=== PATIENT | male | born 1945 | race Caucasian/White ===

== ENCOUNTER 2018-11-18 05:14 | Inpatient (IN) ==
--- NOTE | 2018-11-18 05:45 | PROVIDER DOCUMENTATION ---
HPI-General Adult - General Chief Complaint: Shortness of Breath Stated Complaint: resp distress Time Seen by Provider: 11/18/18 05:42 Source: patient, EMS Allergies/Adverse Reactions: Patient Allergies Allergy/AdvReac Type Severity Reaction Status Date / Time No Known Allergies Allergy Verified 11/15/12 12:17 Home Medications: Home Medication List Medication Instructions Recorded Confirmed Last Taken Type Diazepam [Valium] 5 mg PO HS 11/15/12 03/04/15 03/03/15 21:00 History Gabapentin [Neurontin] 300 mg PO BID 11/15/12 03/04/15 03/03/15 History Propranolol [Inderal] 40 mg PO BID 11/15/12 03/04/15 03/04/15 05:30 History Nicotine Patch [Nicoderm Patch] 21 mg TD DAILY #0 patch.[id number] 11/18/12 03/04/15 Unknown Rx Potassium Chloride E.r. [Klor-Con] 10 meq PO BID #0 tablet 11/18/12 03/04/15 03/04/15 05:30 Rx Primidone [Mysoline] 50 mg PO BID 11/18/12 03/04/15 03/04/15 05:30 Rx - History of Present Illness -Gen Adult Nature of Presenting Problems: Pt presents with sob, pt has had URI, cough, congestion, fever at home, on abx from pcp and recently finished course of abx, pt now with worsening sob, 100.1F at home tonight, pt denies jung, cp, ap, n/v/d. Pt is lying in bed in no acute respiratory distress. Location of Pain/Injury: reports: none Pain Radiation: reports: no radiation Quality of Pain: reports: none Severity: reports: moderate Onset/Duration: reports: 1 week ago Timing: reports: still present Context/Activities at Onset: reports: none Modifying Factors: improves with: nothing Associated Symptoms: reports: cough, shortness of breath Similar Symptoms Previously?: Yes Recently seen or treated by another doctor?: Yes Review of Systems - Adult - REVIEW OF SYSTEMS - ADULT Constitutional: reports: see HPI, fever Eyes: reports: no symptoms reported Ears, Nose, Mouth & Throat: reports: no symptoms reported Cardiovascular: reports: no symptoms reported Respiratory: reports: see HPI Gastrointestinal: reports: no symptoms reported Genitourinary: reports: no symptoms reported Musculoskeletal: reports: no symptoms reported Integumentary: reports: no symptoms reported Neurological: reports: no symptoms reported Psychiatric: reports: no symptoms reported Endocrine: reports: no symptoms reported Hematologic/Lymphatic: reports: no symptoms reported Allergic/Immunologic: reports: no symptoms reported All Other Systems: Reviewed and Negative Past History - Adult - PAST MEDICAL HISTORY-ADULT Review of Records: reports: Old Records Reviewed, Nursing Assessment Review, Medications Reviewed, Social history reviewed & non-contributory. Major Childhood Illnesses: reports: denies history Cardiovascular: reports: denies history Respiratory: reports: denies history Gastrointestinal: reports: denies history Obstetrical/Gynecological: reports: denies history Genitourinary: reports: denies history Musculoskeletal: reports: denies history Neurological: reports: denies history Psychiatric: reports: denies history Endocrine/Immune: reports: denies history Physical Exam-General - PHYSICAL EXAM-ADULT Initial Vital Signs Reviewed: Yes - CONSTITUTIONAL General Appearance: appears well - EYES Eyes: PERRL/EOMI - HEAD, EARS, NOSE, MOUTH & THROAT HENMT: normal ENT inspection - NECK Neck: normal inspection - RESPIRATORY Respiratory: no respiratory distress, no accessory muscle use, crackles - CARDIOVASCULAR Cardiovascular: regular rate, rhythm - GASTROINTESTINAL (ABDOMEN) Abdominal Exam: normal bowel sounds, non tender, soft - LYMPHATIC Lymphatic: no adenopathy - MUSCULOSKELETAL Back Exam: normal inspection Extremity: normal range of motion - SKIN Integumentary: normal color - NEUROLOGIC Neurologic: advanced practice professional II-XII nml as tested - PSYCHIATRIC Psych/Mental Status: normal mood/affect Progress - PLAN OF CARE/RESULTS Progress/Plan/Lab Results: Orders Category Date Time Status Cardiac Monitoring DIRECTED Care 11/18/18 05:24 Active IV Insertion ORDERED Care 11/18/18 05:24 Active Notify MD of + Sepsis Screen NOW Care 11/18/18 05:24 Active Notify Physician As Ordered Care 11/18/18 05:24 Active CHEST-1 VIEW [RAD] Stat Exams 11/18/18 05:24 Ordered BLOOD CULTURE [BLDCUL] Stat Lab 11/18/18 05:24 Uncollected CBC WITH DIFF [HEME] Stat Lab 11/18/18 05:24 Uncollected CK PROFILE [SP CHEM] Stat Lab 11/18/18 05:24 Uncollected COMPREHENSIVE METABOLIC PANEL [CHEM] Stat Lab 11/18/18 05:24 Uncollected LACTATE, PLASMA [CHEM] Stat Lab 11/18/18 05:25 Uncollected PROTIME WITH INR [COAG] Stat Lab 11/18/18 05:24 Uncollected PTT [COAG] Stat Lab 11/18/18 05:24 Uncollected TROPONIN T Stat Lab 11/18/18 05:24 Uncollected URINALYSIS W/POSS RFLX CULT [URINALYSIS] Stat Lab 11/18/18 05:24 Uncollected Oxygen Device Stat Oth 11/18/18 05:24 Active Result Diagrams: 11/18/18 05:30 11/18/18 05:30 - XRAY 1 XRAY Study: Chest Impression: Abnormal (bibasilar infiltrates) - CONSULTS/PCP/HOSPITALIST Notification #1 *Consult/PCP/Hospitalist*: Brenda Time Discussed: 07:40 Consult Disposition: Admit - CHANGE OF SHIFT REPORT (ED Provider) 1 Report Given and Care Transferred to:: Dr Wloff Time of Transfer: 07:00 Items Pending: Labs, XRAY Results Departure - Departure Date of Disposition Decision: 11/18/18 Time of Disposition Decision: 07:45 DIAGNOSIS: Pneumonia, Hypoxemia Disposition: ADMITTED INPATIENT 09 Certified Medical Emergency: Emergent Condition: Stable Referrals and Follow-Ups: Wilbur Lyons MD [Primary Care Provider] - - Critical Care Note This patient required my direct & personal management of CC.: No Attestation - Physician/ UMESH Attestation Patient care was provided by Advanced Practice Provider:: No The physician spent face to face time with patient:: Yes Advanced Practice Provider documentation review:: Supervising physician onsite and consulted in the evaluation and care of this patient. The physician did have a face to face encounter with the patient.
[2018-11-18 06:16] LABS: BASO# 0.01 X1000 (0.0-0.2); EOS# 0.02 X1000 (0.0-0.7); EOS% 0.1 % (0.0-10.0); HEMATOCRIT 42.2 % (42.0-52.0); HEMOGLOBIN 14.5 g/dL (14.0-18.0); IMM GRAN# 0.45 X1000 (0.0-0.04); IMM GRAN% 1.7 % (0.0-0.5); INR 1.05; LYMPH# 2.02 X1000 (1.2-3.4); LYMPH% 7.5 % (20.5-51.1); MCH 30.2 PG (27-31); MCHC 34.4 g/dL (33-37); MCV 87.9 FL (81-99); MONO# 2.13 X1000 (0.11-0.59); MONO% 7.9 % (1.7-9.3); MPV 10.5 FL (7.4-10.4); NEUT# 22.33 X1000 (1.4-6.5); NEUT% 82.8 % (42.2-75.2); PLT 113 X1000 (130-400); PROTIME 14.5 Seconds (11.0-16.0); RDW 14.2 % (11.5-14.5); WBC 26.96 X1000 (4.8-10.8)
[2018-11-18 06:17] LABS: PTT 29.6 Seconds (22.3-41.8)
--- NOTE | 2018-11-18 06:49 | Diag Imaging Result Doc PS360 ---
EXAM: CHEST-1 VIEW HISTORY: fever, cough TECHNIQUE: Chest single view COMPARISON: 11/07/2018 FINDINGS: The lungs are well expanded. The heart is not enlarged. The vessels are not distended. There are increased interstitial markings in the lung bases. No effusion identified. IMPRESSION: Basilar infiltrates on the current exam. Electronically signed by Joo Camarillo 11/18/2018 6:46 AM
[2018-11-18] MEDS ORDERED: LEVAQUIN 750 MG/D5W 750 MG/150 ML IVPB IV ONE (06:51)
[2018-11-18 07:12] LABS: BANDS 2 % (0-1); LYMPHS 4 % (21-51); MONO 2 % (1-9); SEGS 92 % (42-75)
[2018-11-18 07:14] LABS: ALB/GLOB RATIO 0.8; ALBUMIN 3.2 g/dL (3.5-5.0); CALCIUM 8.5 mg/dL (8.8-10.2); CREATININE 1.2 mg/dL (0.7-1.2); POTASSIUM 3.2 mmol/L (3.5-5.1); TOTAL BILIRUBIN 0.94 mg/dL (0.20-1.00)
[2018-11-18] MEDS ORDERED: DUONEB (A & A) INH ONE (07:37)
[2018-11-18] MEDS ORDERED: NS 1,000 ML IV ONE ×2 (07:37→07:46)
[2018-11-18] MEDS ORDERED: ZOFRAN PO PRN (07:46)
[2018-11-18] MEDS ORDERED: TYLENOL PO PRN (07:46)
[2018-11-18 07:52] LABS: URINE SOURCE CLEAN CATCH
[2018-11-18 07:57] LABS: BILIRUBIN URINE NEGATIVE (NEGATIVE); BLOOD URINE NEGATIVE (NEGATIVE); COLOR YELLOW; GLUCOSE URINE NEGATIVE (NEGATIVE); KETONE URINE NEGATIVE (NEGATIVE); LEUKOCYTES URINE NEGATIVE (NEGATIVE); NITRITE URINE NEGATIVE (NEGATIVE); PROTEIN URINE 30 mg/dL (NEGATIVE); SP GRAVITY URINE 1.023; TURBIDITY URINE CLEAR (CLEAR); UROBILINOGEN URINE NORMAL (NORMAL)
[2018-11-18 07:58] LABS: UR EPITHELIAL CELLS <10 /HPF (<10); URINE BACTERIA NEGATIVE /HPF; URINE RBC <10 /HPF (<10); URINE WBC <10 /HPF (<10)
[2018-11-18] MEDS: LEVAQUIN 750 MG/D5W 750 MG/150 ML IVPB IV SCH (08:10)
[2018-11-18] MEDS: DUONEB (A & A) INH SCH ×5 (08:33→23:27)
[2018-11-18] MEDS ORDERED: SODIUM CHLORIDE 0.9% INJ SCH (09:30)
[2018-11-18] MEDS: INDERAL PO SCH ×2 (10:13→21:26)
[2018-11-18 10:14] LABS: MAGNESIUM 1.6 mg/dL (1.5-2.7); PHOSPHORUS 2.7 mg/dL (2.7-4.5)
[2018-11-18] MEDS: NEURONTIN PO SCH ×2 (10:14→21:27)
[2018-11-18] MEDS: ROCEPHIN 1 GM in NS 50 ML IV SCH ×2 (10:15→10:30)
[2018-11-18] MEDS: LOVENOX SUBQ SCH (10:16)
[2018-11-18] MEDS: PROTONIX IV SCH (10:16)
[2018-11-18] MEDS ORDERED: SOLU-MEDROL IV SCH (11:00)
[2018-11-18] MEDS ORDERED: KLOR-CON PO ONE (11:03)
[2018-11-18] MEDS ORDERED: VANCOMYCIN IV PER PHARMACY MISC SCH (11:15)
--- NOTE | 2018-11-18 12:39 | PROGRESS NOTE ---
DATE: 11/18/2018 A 73-year-old, white gentleman admitted with cough, chest congestion, fever, chills, wheezing and some shortness of breath. The patient was tachycardic. Initial blood pressure was low normal. In the ER, found to have bilateral pneumonia. The patient is on IV fluids, IV antibiotics and pulmonary toilet. I evaluated the patient. Overall, plan discussed with the patient. Lab data noted. The patient and his girlfriend was present. cc: MD Robel Rodrigues MD
[2018-11-18] MEDS ORDERED: VANCOMYCIN 2,300 MG in NS 500 ML IV ONE (13:00)
[2018-11-18] MEDS ORDERED: NS 1,000 ML ONE (15:27)
[2018-11-18] MEDS ORDERED: VALIUM PO ONE (15:47)
[2018-11-18 17:45] LABS: BASO# 0.01 X1000 (0.0-0.2); HEMATOCRIT 38.8 % (42.0-52.0); HEMOGLOBIN 13.4 g/dL (14.0-18.0); IMM GRAN# 0.35 X1000 (0.0-0.04); IMM GRAN% 1.6 % (0.0-0.5); LYMPH# 1.14 X1000 (1.2-3.4); LYMPH% 5.2 % (20.5-51.1); MCH 30.6 PG (27-31); MCHC 34.5 g/dL (33-37); MCV 88.6 FL (81-99); MONO# 0.68 X1000 (0.11-0.59); MONO% 3.1 % (1.7-9.3); MPV 10.7 FL (7.4-10.4); NEUT# 19.83 X1000 (1.4-6.5); NEUT% 90.1 % (42.2-75.2); PLT 98 X1000 (130-400); RBC 4.38 XMIL (4.7-6.1); RDW 14.2 % (11.5-14.5); WBC 22.01 X1000 (4.8-10.8)
[2018-11-18 17:48] LABS: ALLEN TEST YES; BE -2.6 mmoll (-3.0-3.0); BLOOD TYPE ARTERIAL; HCO3-(ACT) 22.8 mmoll (20.0-26.0); METHB 1.3 % (0.0-1.5); O2HB 93.9 % (95.0-99.0); PCO2(98.6) 28 mmHg (35-45); PO2(98.6) 65 mmHg (60-100); SAMPLE BLOOD; SAO2 96.7 % (95.0-100.0); THB 13.6 g/dL (11.5-17.4); pH(98.6) 7.46 (7.35-7.45)
[2018-11-18 17:49] LABS: MODALITY CANNULA
[2018-11-18 18:01] LABS: BANDS 5 % (0-1); LYMPHS 3 % (21-51); MONO 2 % (1-9); SEGS 90 % (42-75)
[2018-11-18 18:23] LABS: AGAP 12; ALB/GLOB RATIO 0.8; ALBUMIN 2.7 g/dL (3.5-5.0); ALKALINE PHOSPHATASE 61 U/L (32-122); BUN 22 mg/dL (8-22); CALCIUM 7.8 mg/dL (8.8-10.2); CHLORIDE 104 mmol/L (98-107); COSMO 281; ESTIMATED GFR > 60; GLUCOSE 238 mg/dL (70-104); GOT 35 U/L (10-34); GPT 63 U/L (10-44); POTASSIUM 3.5 mmol/L (3.5-5.1); SODIUM 135 mmol/L (136-145); TCO2 19 mmol/L (25-35); TOTAL BILIRUBIN 0.73 mg/dL (0.20-1.00); TOTAL PROTEIN 6.3 g/dL (6.3-8.3)
[2018-11-18] MEDS: NS + KCL 20 MEQ 1,000 ML IV SCH (18:35)
--- NOTE | 2018-11-18 19:05 | HISTORY AND PHYSICAL ---
A 73-year-old white gentleman came because of shortness of breath. Mr. Diaz, elderly white gentleman was sick for 2 days chest congestion, cough, expectoration, wheezing. Patient did have fever and chills, including shortness of breath, decreased exercise tolerance. The patient was feeling weak. Chest soreness when he came. Evaluated in the ER. Chest x-ray did reveal bilateral pulmonary infiltrate. The patient also had leukocytosis. His initial blood pressure was low normal. Patient was admitted for further care. The patient was also tachycardic and tachypneic. He denied any typical chest pain. He denied palpitation. No hemoptysis. The patient was feeling weak. No nausea or vomiting. Denied any diarrhea, blood or mucus in the stool. No dysuria or hematuria. Denied abdominal pain or distention. No focal weakness. Claimed compliant to medication. No further history available at this time. ALLERGIES: No known drug allergies. MEDICATIONS: Includes Valium, Neurontin, Inderal, potassium, primidone, patient was also taking Norvasc. PAST MEDICAL HISTORY: Hypertension, essential tremor, peripheral neuropathy, fatty liver, COPD, peripheral arterial disease, aortic stenosis. PERSONAL HISTORY: Single, quit smoking recently. Denied alcohol or substance abuse. FAMILY HISTORY: Father at age 65 with TX. He also had Parkinson disease and brain tumor. Mother at age 65 with female cancer detail of which patient does not know. One brother of TX. REVIEW OF SYSTEMS: As per HPI. PHYSICAL EXAMINATION: GENERAL: Elderly white gentleman in mild distress. VITAL SIGNS: Blood pressure when he came was 90/71, pulse 108, respiration 30, temperature 98.8 degrees. SKIN: Normal turgor. No rash or petechiae. HEENT: Head atraumatic, normocephalic. [place] conjunctivae. Anicteric sclerae. Extraocular muscle movement normal. Fundus cannot be penetrated. Good oral hygiene. No tonsillopharyngeal congestion or exudate. Ears and nose benign. NECK: Supple. No JVD, thyromegaly or lymphadenopathy. CHEST: Bibasilar crepitation. Occasional wheezing. CARDIOVASCULAR: S1 and S2 heard, 2-3/6 systolic murmur at aortic area. No gallop or thrill. ABDOMEN: Soft, globular. Bowel sounds present. Nontender. EXTREMITIES: No cyanosis, clubbing. No acute DVT. No acute vascular compromise. CONTAINER REPAIRER: Alert, awake answering questions fairly well. Able to move all 4 limbs. LABORATORY DATA: WBC count 26.96, hemoglobin 14.5, hematocrit 42.2, platelet count 113,000. PT/INR 1.05, PTT 29.6. Electrolytes did reveal mild hypokalemia. BUN 27, creatinine 1.2. AST 56, ALT 81, plasma lactate 2.2, magnesium 1.6. Urinalysis was benign. Chest x-ray did reveal bilateral pulmonary infiltrates. Patient admitted with bilateral pneumonia, chronic obstructive pulmonary disease exacerbation, respiratory distress, hypertension, gastritis, peripheral arterial disease, possibility of systemic inflammatory response syndrome cannot be ruled out. PLAN: Admit the patient. IV antibiotics. Pulmonary toilet. IV steroid. When I was checking patient data again patient was still tachycardic, blood pressure was low normal. I am going to resume IV fluid, steroid, recheck appropriate labs including D-dimer, repeat chest x-ray, proBNP, blood gas. cc: MD Robel Rodrigues MD
[2018-11-18] MEDS ORDERED: KLOR-CON PO SCH (21:00)
[2018-11-18] MEDS ORDERED: VALIUM PO SCH (21:00)
[2018-11-18] MEDS: SOLU-MEDROL IV SCH (21:26)
[2018-11-18] MEDS: MYSOLINE PO SCH (21:26)
[2018-11-18] MEDS: KLOR-CON PO SCH (21:26)
[2018-11-18] MEDS: VALIUM PO SCH (21:27)
[2018-11-18] MEDS ORDERED: LANOXIN IV ONE (23:05)
[2018-11-19] MEDS: DUONEB (A & A) INH SCH ×6 (03:02→23:19)
[2018-11-19] MEDS: NS + KCL 20 MEQ 1,000 ML IV SCH ×2 (04:24→13:43)
[2018-11-19] MEDS: SOLU-MEDROL IV SCH ×3 (04:24→20:27)
[2018-11-19] MEDS: LANOXIN IV SCH ×2 (04:25→08:42)
[2018-11-19 05:56] LABS: BASO# 0.01 X1000 (0.0-0.2); BASO% 0.1 % (0.0-0.8); HEMATOCRIT 38.5 % (42.0-52.0); HEMOGLOBIN 13.2 g/dL (14.0-18.0); IMM GRAN# 0.12 X1000 (0.0-0.04); IMM GRAN% 0.7 % (0.0-0.5); LYMPH# 1.36 X1000 (1.2-3.4); LYMPH% 8.1 % (20.5-51.1); MCH 30.8 PG (27-31); MCHC 34.3 g/dL (33-37); MCV 89.7 FL (81-99); MONO# 0.66 X1000 (0.11-0.59); MONO% 3.9 % (1.7-9.3); MPV 10.4 FL (7.4-10.4); NEUT# 14.57 X1000 (1.4-6.5); NEUT% 87.2 % (42.2-75.2); PLT 96 X1000 (130-400); RBC 4.29 XMIL (4.7-6.1); RDW 14.1 % (11.5-14.5); WBC 16.72 X1000 (4.8-10.8)
[2018-11-19 06:14] LABS: BANDS 4 % (0-1); LYMPHS 4 % (21-51); SEGS 92 % (42-75)
[2018-11-19 06:15] LABS: HEMOGLOBIN A1C 5.6 % (4.8-6.0)
[2018-11-19 06:36] LABS: AGAP 9; ALB/GLOB RATIO 0.7; ALBUMIN 2.5 g/dL (3.5-5.0); ALKALINE PHOSPHATASE 64 U/L (32-122); BUN 17 mg/dL (8-22); CALCIUM 8.1 mg/dL (8.8-10.2); CHLORIDE 110 mmol/L (98-107); COSMO 281; CREATININE 0.8 mg/dL (0.7-1.2); ESTIMATED GFR > 60; GLUCOSE 174 mg/dL (70-104); GOT 28 U/L (10-34); GPT 52 U/L (10-44); POTASSIUM 4.4 mmol/L (3.5-5.1); SODIUM 138 mmol/L (136-145); TCO2 19 mmol/L (25-35); TOTAL BILIRUBIN 0.51 mg/dL (0.20-1.00); TOTAL PROTEIN 6.3 g/dL (6.3-8.3)
--- NOTE | 2018-11-19 08:21 | Diag Imaging Result Doc PS360 ---
EXAM: CHEST-PORTABLE - 11/19/2018 HISTORY: sob TECHNIQUE: Portable chest COMPARISON: 11/18/2018 FINDINGS: Inspiration is mildly deeper compared to prior. The bibasilar interstitial opacities appear to have decreased mildly. There are no other significant interval changes identified. IMPRESSION: Mild decrease in basilar interstitial opacities. Electronically signed by Sadi Barillas 11/19/2018 8:18 AM
[2018-11-19] MEDS: PROTONIX IV SCH (08:45)
[2018-11-19] MEDS: NEURONTIN PO SCH ×2 (08:46→20:27)
[2018-11-19] MEDS: VALIUM PO SCH ×2 (08:46→20:27)
[2018-11-19] MEDS: MYSOLINE PO SCH ×2 (08:46→20:27)
[2018-11-19] MEDS: INDERAL PO SCH ×2 (08:46→20:27)
[2018-11-19] MEDS: KLOR-CON PO SCH ×2 (08:46→20:27)
[2018-11-19] MEDS: LEVAQUIN 750 MG/D5W 750 MG/150 ML IVPB IV SCH (08:47)
[2018-11-19] MEDS: LOVENOX SUBQ SCH (08:47)
[2018-11-19] MEDS: ROCEPHIN 1 GM in NS 50 ML IV SCH (08:47)
--- NOTE | 2018-11-19 11:26 | PROGRESS NOTE ---
DATE: 11/19/2018 SUBJECTIVE: This is level 3 documentation. A 73-year-old, white male, who was admitted by Dr. Lyons yesterday on 11/18/2018 for shortness of breath, cough, and wheezing. Admitted with bilateral pneumonia. The patient is in also atrial fibrillation. REVIEW OF SYSTEMS: Productive raspy cough. No chest pain, shortness of breath. No GI symptoms. No swelling of feet. PAST MEDICAL HISTORY: Reviewed. PAST SURGICAL HISTORY: Reviewed. MEDICINES: Reviewed. ALLERGIES: Not known. EXAMINATION: Vital Signs: Temperature is 97 degrees. He has atrial fibrillation. Blood pressure 115/72, 2 L nasal cannula 93%. HEENT: Exam reveal pterygium noted on the left side of the eye. Neck: Supple. Chest: Bilateral rhonchi. Heart: Very distant heart sounds. Not able to appreciate any murmurs because of the rhonchi. Abdomen: Belly is soft, nontender. Good bowel sounds. Extremities: No peripheral edema. Neurologic: No obvious neurological deficits. INVESTIGATIONS: White cell count came down 16.72, hematocrit 38.5, platelets 96. D-dimer 2.0. ABG: The pH is 7.46, pCO2 28, PO2 65, bicarbonate 22. SMA 7: Sodium 138, potassium 4.4, chloride 110. BUN 17, creatinine 0.8, glucose 174. A1c 5.6. LFTs were coming down. Urinalysis is clear. Blood cultures are pending. ASSESSMENT AND PLAN: 1. Bilateral pneumonia with a productive raspy cough. We will send the sputum cultures. White cell count coming down. Currently patient is on intravenous vancomycin and ceftriaxone. 2. Atrial fibrillation. We will check the cardiac enzymes. Currently on Lanoxin. The patient was receiving antibiotics; intravenous vancomycin and ceftriaxone and Levaquin. 3. Chronic obstructive pulmonary disease on intravenous steroids. 4. Intravenous fluids with potassium given. 5. Deep vein thrombosis and gastrointestinal prophylaxis as per auto sheet. 6. Positive D-dimer. Dr. Lyons ordered computed tomography pulmonary angiogram. 7. History of peripheral arterial disease. DENISE 0.7, 0.8, mild in both legs. 8. History of aortic stenosis, moderate. Last echocardiogram was done 03/15/2015. We will continue to monitor. LEVEL OF DOCUMENTATION: 35 minutes. cc: Robel Lowe MD
--- NOTE | 2018-11-19 12:15 | Diag Imaging Result Doc PS360 ---
EXAM: CT ANGIOGRAM PULMONARY ARTERIES - 11/19/2018 HISTORY: chest pain TECHNIQUE: CT angiogram pulmonary arteries with intravenous contrast. Axial, coronal, and 3-D MIP images are obtained. COMPARISON: 06/25/2015 CT thorax without contrast FINDINGS: There are no filling defects identified in the pulmonary arteries. There is mild ectasia of the ascending aorta up to 4 cm. There is no indication of aortic dissection. There is mild cardiomegaly. There is right lower lobe consolidation which is suspicious for pneumonia. Underlying mass lesion at the right infrahilar region cannot be entirely excluded. There is mild infiltrate and/or atelectasis at the posterior left lower lobe. There is no pleural effusion or pneumothorax identified. IMPRESSION: No evidence of pulmonary embolism. Right lower lobe pneumonia. Follow-up is recommended to ensure resolution. Electronically signed by Sadi Barillas 11/19/2018 12:13 PM
[2018-11-19] MEDS: VANCOMYCIN 1,900 MG in NS 500 ML IV SCH (13:43)
[2018-11-20] MEDS: DUONEB (A & A) INH SCH ×6 (03:22→23:19)
[2018-11-20 03:40] LABS: ALLEN TEST YES; BE -4.9 mmoll (-3.0-3.0); BLOOD TYPE ARTERIAL; HCO3-(ACT) 21.1 mmoll (20.0-26.0); METHB 1.1 % (0.0-1.5); O2(CT) 11.7 mL/dL (15.0-23.0); O2HB 96.1 % (95.0-99.0); PCO2(98.6) 28 mmHg (35-45); PO2(98.6) 78 mmHg (60-100); SAMPLE BLOOD; SAO2 98.1 % (95.0-100.0); THB 8.6 g/dL (11.5-17.4); pH(98.6) 7.43 (7.35-7.45)
[2018-11-20 03:41] LABS: MODALITY CANNULA
[2018-11-20] MEDS: SOLU-MEDROL IV SCH ×3 (03:59→20:31)
[2018-11-20] MEDS: LANOXIN IV SCH ×2 (04:00→08:52)
[2018-11-20 05:56] LABS: HEMATOCRIT 37.2 % (42.0-52.0); HEMOGLOBIN 12.4 g/dL (14.0-18.0); IMM GRAN# 0.05 X1000 (0.0-0.04); IMM GRAN% 0.4 % (0.0-0.5); LYMPH# 0.92 X1000 (1.2-3.4); LYMPH% 7.3 % (20.5-51.1); MCHC 33.3 g/dL (33-37); MCV 90.1 FL (81-99); MONO# 0.44 X1000 (0.11-0.59); MONO% 3.5 % (1.7-9.3); MPV 10.2 FL (7.4-10.4); NEUT# 11.14 X1000 (1.4-6.5); NEUT% 88.8 % (42.2-75.2); PLT 113 X1000 (130-400); RBC 4.13 XMIL (4.7-6.1); RDW 14.4 % (11.5-14.5); WBC 12.55 X1000 (4.8-10.8)
[2018-11-20 06:09] LABS: AGAP 7; BUN 22 mg/dL (8-22); CALCIUM 8.2 mg/dL (8.8-10.2); CHLORIDE 114 mmol/L (98-107); COSMO 287; CREATININE 0.7 mg/dL (0.7-1.2); ESTIMATED GFR > 60; GLUCOSE 210 mg/dL (70-104); POTASSIUM 4.6 mmol/L (3.5-5.1); SODIUM 139 mmol/L (136-145); TCO2 18 mmol/L (25-35)
[2018-11-20 06:14] LABS: FREE T4 0.83 ng/dL (0.93-1.70); TSH 1.34 uIUmL (0.27-4.20)
[2018-11-20] MEDS: NS + KCL 20 MEQ 1,000 ML IV SCH ×2 (08:51→14:52)
[2018-11-20] MEDS: PROTONIX IV SCH (08:51)
[2018-11-20] MEDS: LEVAQUIN 750 MG/D5W 750 MG/150 ML IVPB IV SCH (08:51)
[2018-11-20] MEDS: MYSOLINE PO SCH ×2 (08:51→20:31)
[2018-11-20] MEDS: ROCEPHIN 1 GM in NS 50 ML IV SCH (08:51)
[2018-11-20] MEDS: KLOR-CON PO SCH ×2 (08:51→20:31)
--- NOTE | 2018-11-20 08:51 | Diag Imaging Result Doc PS360 ---
EXAM: CHEST-2 VIEWS HISTORY: hypoxia TECHNIQUE: Chest two views COMPARISON: 11/19/2018 FINDINGS: The lungs are hyperexpanded. The heart is not enlarged. The vessels are not distended. There are no infiltrates. No pleural effusions. IMPRESSION: Emphysema Electronically signed by Joo Camarillo 11/20/2018 8:49 AM
[2018-11-20] MEDS: NEURONTIN PO SCH ×2 (08:52→20:31)
[2018-11-20] MEDS: VALIUM PO SCH ×2 (08:52→20:31)
[2018-11-20] MEDS: LOVENOX SUBQ SCH (08:52)
[2018-11-20] MEDS: INDERAL PO SCH ×2 (08:52→20:31)
[2018-11-20] MEDS ORDERED: MAGNESIUM SULFATE 2 GM/S.W.I. 2 GM/50 ML IVPB IV ONE (10:17)
[2018-11-20] MEDS: VANCOMYCIN 1,900 MG in NS 500 ML IV SCH (13:15)
--- NOTE | 2018-11-20 14:08 | PROGRESS NOTE ---
DATE: 11/20/2018 SUBJECTIVE: The patient is doing better. The patient has a nonproductive cough. ekg monitor tech showing atrial fibrillation. Last night, he had 3 beats of nonsustained ventricular tachycardia, 5 beats of nonsustained ventricular tachycardia, asymptomatic. He is little bit stable compared to when he came in. PHYSICAL EXAMINATION: Temperature is 97.8 degrees, pulse is 85, blood pressure 132/81, 2 L nasal cannula. HEENT Examination: Pterygium in the left eye noted. Neck is supple. He has coarse rhonchi on the right side. Heart sounds are irregular. Belly is soft, nontender. Nonfocal. INVESTIGATIONS: CBC: White cell count 12.5, hematocrit 37, platelets 113,000. ABG: PH is 7.43, pCO2 is 28, PO2 is 78 on 28%. SMA-7: Sodium 139, potassium 4.6, chloride 114, BUN 22, creatinine 0.7, glucose 210. Cardiac enzymes were negative. ProBNP 3000. TSH, free T4 are normal. Sputum cultures are pending. Blood cultures are negative. Pulmonary angiogram reported no PE, right lower lobe pneumonia. Followup recommended. Rule out mass in the right infrahilar region. ASSESSMENT AND PLAN: 1. Right lower lobe pneumonia, sonia sputum. Follow up on sputum cultures and repeat the CT down the line. Currently he is receiving Levaquin, ceftriaxone, vancomycin, and intravenous steroids. 2. Deep venous thrombosis prophylaxis with Lovenox. 3. Atrial fibrillation. Normal thyroid function test, normal cardiac enzymes. On Lanoxin 250 mcg daily. 4. Nonsustained ventricular tachycardia, brief. Continue on Inderal. Replace the potassium and one dose of magnesium. We will discontinue the vancomycin since we do not have any cultures back. Continue on Levaquin and Rocephin. Repeat the labs in the morning. Dr. Lyons is going to follow up and also decreased intravenous fluids as well as prednisone today. LEVEL OF DOCUMENTATION: 25 minutes. cc: Robel Lowe MD
--- NOTE | 2018-11-20 15:35 | ECHO REPORT ---
ORDER DATE: 11/19/2018 ECHOCARDIOGRAM: ECHOCARDIOGRAPHIC MEASUREMENTS: 1. Interventricular septum 1.4 2. Left ventricular posterior wall 1.2. 3. Diastolic diameter 4.9. 4. Left atrium 3.7. 5. Aorta 3.5. SUMMARY: 1. Mitral valve leaflets are normal. There is mitral annular calcification. 2. Aortic valve leaflets are trileaflet, sclerosed, calcified. 3. Tricuspid valve was normal. There is biatrial enlargement. Normal left ventricular cavity size. Estimated ejection fraction of 65%. Atrial fibrillation was noted. There is mild mitral regurgitation. 4. Peak velocity across the aortic valve was 3.9 m/sec with a peak gradient of 60 mmHg, mean gradient of 32 mmHg. Aortic valve area by VTI was 1.0 sq cm. There is moderate aortic stenosis. 5. There is mild tricuspid regurgitation. Peak velocity across the tricuspid valve was 3.2 m/sec. Pulmonary artery systolic pressure of 50 mmHg. There is mild aortic regurgitation. 6. There is no pericardial effusion. Anterior echo-free space suggestive of pericardial fat pad was noted. cc: MD Robel Alvarez MD
[2018-11-21] MEDS: DUONEB (A & A) INH SCH ×6 (03:10→23:01)
[2018-11-21] MEDS: NS + KCL 20 MEQ 1,000 ML IV SCH ×2 (03:57→17:02)
[2018-11-21 05:20] LABS: BASO# 0.01 X1000 (0.0-0.2); BASO% 0.1 % (0.0-0.8); HEMATOCRIT 38.1 % (42.0-52.0); HEMOGLOBIN 13.2 g/dL (14.0-18.0); IMM GRAN# 0.04 X1000 (0.0-0.04); IMM GRAN% 0.4 % (0.0-0.5); LYMPH# 0.87 X1000 (1.2-3.4); LYMPH% 9.3 % (20.5-51.1); MCH 31.1 PG (27-31); MCHC 34.6 g/dL (33-37); MCV 89.9 FL (81-99); MONO# 0.41 X1000 (0.11-0.59); MONO% 4.4 % (1.7-9.3); NEUT# 8.03 X1000 (1.4-6.5); NEUT% 85.8 % (42.2-75.2); PLT 128 X1000 (130-400); RBC 4.24 XMIL (4.7-6.1); RDW 14.2 % (11.5-14.5); WBC 9.36 X1000 (4.8-10.8)
[2018-11-21 05:37] LABS: AGAP 7; BUN 19 mg/dL (8-22); CALCIUM 8.3 mg/dL (8.8-10.2); CHLORIDE 112 mmol/L (98-107); COSMO 285; CREATININE 0.8 mg/dL (0.7-1.2); ESTIMATED GFR > 60; GLUCOSE 197 mg/dL (70-104); POTASSIUM 4.2 mmol/L (3.5-5.1); SODIUM 139 mmol/L (136-145); TCO2 20 mmol/L (25-35)
--- NOTE | 2018-11-21 07:33 | EKG Report ---
Test Performed on : 11/18/2018 5:34:33 PM Test Reason : CP Blood Pressure : / mmHG Vent. Rate : 126 BPM Atrial Rate : 104 BPM P-R Int : 000 ms QRS Dur : 108 ms QT Int : 318 ms P-R-T Axes : 000 -30 139 degrees QTc Int : 460 ms Atrial fibrillation. with rapid ventricular response. Left axis deviation Incomplete left bundle branch block ST & T wave abnormality, consider lateral ischemia Abnormal ECG When compared with ECG of 15-NOV-2012 11:17, Atrial fibrillation. has replaced Sinus rhythm. Vent. rate has increased BY 55 BPM T wave inversion more evident in Lateral leads Confirmed by Anne VARGAS, Julio C ([id number]) on 11/21/2018 8:59:00 AM
[2018-11-21] MEDS: PROTONIX IV SCH ×2 (08:14→09:45)
[2018-11-21] MEDS: LEVAQUIN 750 MG/D5W 750 MG/150 ML IVPB IV SCH (08:14)
[2018-11-21] MEDS: SOLU-MEDROL IV SCH ×2 (08:14→20:48)
[2018-11-21] MEDS: NEURONTIN PO SCH ×2 (08:15→20:48)
[2018-11-21] MEDS: KLOR-CON PO SCH ×2 (08:15→20:48)
[2018-11-21] MEDS: ELIQUIS PO SCH ×2 (08:15→20:48)
[2018-11-21] MEDS: VALIUM PO SCH ×2 (08:15→20:48)
[2018-11-21] MEDS: LANOXIN IV SCH (08:15)
[2018-11-21] MEDS: INDERAL PO SCH ×2 (08:15→20:48)
[2018-11-21] MEDS: ROCEPHIN 1 GM in NS 50 ML IV SCH ×2 (08:16→09:45)
[2018-11-21] MEDS: MYSOLINE PO SCH ×2 (08:16→20:48)
--- NOTE | 2018-11-21 08:19 | PROGRESS NOTE ---
DATE: 11/21/2018 SUBJECTIVE: Mr. Diaz is doing fair. The patient still has cough with scanty sputum production. He did have some hemoptysis on the day of admission, but it is getting better. No high-grade fever or chills. Denied any nausea or vomiting. No diarrhea. No typical chest pain. The patient did have atrial fibrillation with rapid ventricular response, but it is improving vital sign. OBJECTIVE: Vitals: Noted. Neck: Supple. No JVD. Lungs: Bilateral good air entry present. Occasional wheezing. CVS: S1 and S2 heard. Abdomen: Soft, globular bowel sounds present. Extremities: No cyanosis, clubbing. No acute DVT. DOG GROOMER: Alert, awake, able to move all 4 limbs. DIAGNOSTIC DATA: Echocardiogram results reviewed. Laboratory done today did show improvement in leukocyte count. Blood gas done yesterday noted. CT scan result also reviewed. ASSESSMENT: 1. The patient admitted with fever, chills, wheezing, tachycardia. The patient had right lower lobe pneumonia. 2. Paroxysmal atrial fibrillation. 3. History of aortic stenosis. 4. Hypertension. 5. Gastritis. 6. Tremor. PLAN: I am going to continue current treatment and close observation. cc: MD Robel Rodrigues MD
[2018-11-22] MEDS: DUONEB (A & A) INH SCH ×6 (03:03→23:10)
[2018-11-22] MEDS: NS + KCL 20 MEQ 1,000 ML IV SCH (03:27)
[2018-11-22 05:40] LABS: BASO# 0.02 X1000 (0.0-0.2); BASO% 0.2 % (0.0-0.8); HEMATOCRIT 43.5 % (42.0-52.0); HEMOGLOBIN 14.9 g/dL (14.0-18.0); IMM GRAN# 0.08 X1000 (0.0-0.04); IMM GRAN% 0.9 % (0.0-0.5); LYMPH# 1.05 X1000 (1.2-3.4); LYMPH% 11.9 % (20.5-51.1); MCH 31.2 PG (27-31); MCHC 34.3 g/dL (33-37); MCV 91.2 FL (81-99); MONO# 0.57 X1000 (0.11-0.59); MONO% 6.4 % (1.7-9.3); NEUT# 7.12 X1000 (1.4-6.5); NEUT% 80.6 % (42.2-75.2); PLT 142 X1000 (130-400); RBC 4.77 XMIL (4.7-6.1); RDW 14.6 % (11.5-14.5); WBC 8.84 X1000 (4.8-10.8)
[2018-11-22 06:09] LABS: AGAP 6; ALB/GLOB RATIO 0.7; ALBUMIN 2.5 g/dL (3.5-5.0); ALKALINE PHOSPHATASE 85 U/L (32-122); BUN 16 mg/dL (8-22); CALCIUM 8.3 mg/dL (8.8-10.2); CHLORIDE 112 mmol/L (98-107); COSMO 284; CREATININE 0.6 mg/dL (0.7-1.2); DIGOXIN 0.7 ng/mL (0.9-2.0); ESTIMATED GFR > 60; GLUCOSE 194 mg/dL (70-104); GOT 38 U/L (10-34); GPT 66 U/L (10-44); MAGNESIUM 2.2 mg/dL (1.5-2.7); PHOSPHORUS 2.9 mg/dL (2.7-4.5); POTASSIUM 4.6 mmol/L (3.5-5.1); SODIUM 139 mmol/L (136-145); TCO2 21 mmol/L (25-35); TOTAL BILIRUBIN 0.41 mg/dL (0.20-1.00)
[2018-11-22] MEDS ORDERED: LASIX IV ONE (06:26)
--- NOTE | 2018-11-22 07:13 | PROGRESS NOTE ---
DATE: 11/22/2018 SUBJECTIVE: Mr. Diaz is doing fair. The patient is still having cough, wheezing and shortness of breath improving. No nausea or vomiting. No typical chest pain or palpitations. Denied any high-grade fever or chills. No diarrhea, blood or mucus in the stool. The patient does have resting and intention tremor. OBJECTIVE: Vital Signs: As noted. Skin: Senile turgor. Neck: Supple. No JVD. Lungs: Bilateral good air entry present. CVS: S1 and S2 heard. Abdomen: Soft and nontender. Bowel sounds are present. ELECTRIC MOTOR REPAIRING SUPERVISOR: Alert, awake and able to move all 4 limbs. PROBLEMS: 1. Chronic obstructive pulmonary disease exacerbation. 2. Pneumonia. 3. Aortic stenosis. 4. Atrial fibrillation. LABORATORY DATA: Hemoglobin 14.9, hematocrit 43.5, WBC count 8.84, and platelets 142,000. Electrolytes: BUN 16 and creatinine 0.6. ProBNP was elevated. ASSESSMENT AND PLAN: The patient does have pneumonia, aortic stenosis, chronic obstructive pulmonary disease exacerbation, atrial fibrillation with rapid ventricular response improving. I started the patient on anticoagulation. We will check appropriate labs. Planning to discharge patient home hopefully tomorrow if clinical condition permits. cc: MD Robel Rodrigues MD
[2018-11-22] MEDS: INDERAL PO SCH ×2 (10:08→20:55)
[2018-11-22] MEDS: KLOR-CON PO SCH ×2 (10:08→20:55)
[2018-11-22] MEDS: VALIUM PO SCH ×2 (10:08→20:55)
[2018-11-22] MEDS: PREDNISONE PO SCH (10:08)
[2018-11-22] MEDS: LEVAQUIN 750 MG/D5W 750 MG/150 ML IVPB IV SCH (10:09)
[2018-11-22] MEDS: LANOXIN IV SCH (10:09)
[2018-11-22] MEDS: ROCEPHIN 1 GM in NS 50 ML IV SCH (10:10)
[2018-11-22] MEDS: PROTONIX IV SCH (10:10)
[2018-11-22] MEDS: MYSOLINE PO SCH ×2 (10:10→20:56)
[2018-11-22] MEDS: ELIQUIS PO SCH ×2 (10:10→20:55)
[2018-11-22] MEDS: NEURONTIN PO SCH ×2 (10:10→20:55)
[2018-11-23] MEDS: DUONEB (A & A) INH SCH ×3 (03:18→11:31)
--- NOTE | 2018-11-23 07:08 | DISCHARGE SUMMARY ---
ADMISSION DATE: 11/18/2018 DISCHARGE DATE: FINAL DISCHARGE DIAGNOSES: 1. Acute respiratory failure, hypoxemic. 2. Bilateral pneumonia. 3. Chronic obstructive pulmonary disease exacerbation. 4. Hypertension. 5. Paroxysmal atrial fibrillation. 6. Gastritis. 7. Peripheral arterial disease. 8. Systemic inflammatory response syndrome. 9. Osteoarthritis. 10. Essential tremor. 11. Aortic stenosis. HISTORY OF PRESENT ILLNESS: Mr. Diaz is a 73-year-old, white gentleman admitted with chest congestion, cough, fevers, chills, expectoration. There was some hemoptysis, feverish feeling, respiratory distress. Initial blood pressure was low. The patient evaluated in the ER, admitted for further care. The patient was tachycardic and tachypneic. HOSPITAL COURSE: We admitted patient to [facility]. The patient was given IV hydration, IV antibiotics. I started patient on steroids. His D-dimer was elevated. We did a CTA of the pulmonary artery which was negative for pulmonary embolism. The radiologist recommended followup CT scan because there was question about an underlying mass in the right infrahilar region. I discussed this plan with the patient and he is in agreement. Overall, patient is doing better. His shortness of breath and cough improved. He remained afebrile. Leukocyte count improving. I changed him to oral steroid. Patient is ambulating well. Oral intake improved and I am planning to discharge patient home on oral antibiotics, tapering dose of steroid, bronchodilator treatment. PHYSICAL EXAMINATION: Vital Signs: Noted. Blood pressure 124/69, pulse 81, respirations 17, temperature 97.7 degrees. I did check him for qualifications for home oxygen and patient did not qualify. Neck: Supple. No JVD. Lungs: Bilateral good air entry present. Few basal crepitations. CVS: S1 and S2 heard. A 2/6 systolic murmur at aortic area. Abdomen: Soft, globular. Bowel sounds present. WOODWORKING MACHINE FEEDER: Alert, awake. Able to move all 4 limbs. No acute DVT. LABORATORY DATA: CT scan results reviewed. Hemoglobin 14.9, hematocrit 43.5, WBC count 8.84, platelet count 142,000. D-dimer was 2.02, PT/INR 1.05, PTT 29.6. Electrolytes done today, potassium 4.6, sodium 139, CO2 was 21. Minimally abnormal LFT. I ordered a hepatitis panel and the result is pending. Lanoxin level noted which was 0.7. DISCHARGE INSTRUCTIONS: Overall, patient received maximum benefit of hospitalization. Advised patient to take rest, gradually increase activity. Advised him to bring all his medicine, stop taking Pletal. Discussed about Eliquis and watch for bleeding. In case of more distress, call us back or go to emergency room. I discharged him on Levaquin, tapering dose of prednisone, nebulizer treatment, continue rest of the home medicine. cc: MD Robel Rodrigues MD
[2018-11-23 08:10] VITALS: BP 128/85
[2018-11-23] MEDS: ELIQUIS PO SCH (08:15)
[2018-11-23] MEDS: NEURONTIN PO SCH (08:15)
[2018-11-23] MEDS: LEVAQUIN 750 MG/D5W 750 MG/150 ML IVPB IV SCH (08:15)
[2018-11-23] MEDS: KLOR-CON PO SCH (08:16)
[2018-11-23] MEDS: MYSOLINE PO SCH (08:16)
[2018-11-23] MEDS: INDERAL PO SCH (08:16)
[2018-11-23] MEDS: VALIUM PO SCH (08:16)
[2018-11-23] MEDS: PREDNISONE PO SCH (08:17)
[2018-11-23] MEDS: ROCEPHIN 1 GM in NS 50 ML IV SCH ×2 (08:22→09:41)
[2018-11-23] MEDS: PROTONIX IV SCH ×2 (08:23→09:40)
[2018-11-23] MEDS ORDERED: LANOXIN PO SCH (09:00)
[2018-11-23 13:35] LABS: HEPATITIS PROFILE ACUTE SEE COMMENTS
[2018-11-24 10:02] LABS: HCV BY PCR SEE COMMENTS
--- NOTE | 2018-12-07 09:37 | DISCHARGE SUMMARY ---
ADMISSION DATE: 11/18/2018 DISCHARGE DATE: 11/23/2018 MR. MONTOYA'S PRESENTATION CONSISTENT WITH SYSTEMIC INFLAMMATORY RESPONSE SYNDROME SECONDARY TO PNEUMONIA.: cc: MD Robel Rodrigues MD
== END 2018-11-23 12:20 | disposition home or self-care (01) | DRG 193 ==
LOC: ED 05:14 → EDIPHOLD 08:15 → 3S 17:56
PROVIDERS: ADMIT Internal Medicine; ATTEND Internal Medicine
CPT/HCPCS: 71010; 71020; 71045; 71046; 71275; 80048; 80053; 80074; 80162; 81001; 82550; 82805; 83036; 83605; 83735; 83880; 84100; 84439; 84443; 84484; 85025; 85379; 85610; 85730; 87040; 87070; 87205; 87522; 93005; 93306; 94640; 94760; 94761; 96365; 96375; 99285; A9270; C9113; J0696; J1160; J1650; J1940; J1956; J2930; J3370; J3475; J3480; J7030; J7040; J7506; J7512; Q9967; S0164